=== PATIENT | female | born 1975 | race Caucasian/White ===

== ENCOUNTER 2018-12-21 17:40 | Emergency (ER) | payer BC, OTHER ==
[2018-12-21] MEDS ORDERED: Sodium Chloride 0.9% 10 ML Syringe FLUSH PRN (18:00)
--- NOTE | 2018-12-21 18:24 | EDM.PDOC ---
ED HPI GENERAL MEDICAL PROBLEM - General Stated Complaint: HEART PALPITATIONS CHEST PAINS Time Seen by Provider: 12/21/18 18:20 Source of Information: Reports: Patient History Limitations: Reports: No Limitations - History of Present Illness INITIAL COMMENTS - FREE TEXT/NARRATIVE: 43-year-old female who reports at 1:15 PM today she developed palpitations where she felt that her heart was skipping a beat and also racing at times and she also had some tightness in her chest that seemed to wax and wane's been continually present since 1:15 PM today. She feels that when she has these episodes of skipped beats or feelings that her heart is beating fast or irregularly that she has a worsening of the pain in her chest. The pain in her chest is also made worse with palpation and with deep breath. She rates the pain as a 6/10. It is sharp pain and a tight pain. She's had some nausea but no vomiting. She has had some dizziness. No syncope. She has been able to eat and drink normally. There are no other associated signs or symptoms. There are no other modifying factors. 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 - Related Data Allergies Allergy/AdvReac Type Severity Reaction Status Date / Time No Known Allergies Allergy Verified 12/21/18 18:01 Home Meds: Home Meds Escitalopram [Lexapro] 30 mg PO BEDTIME 12/21/18 [History] Fluticasone Propionate [Flonase] 2 spray NASBOTH BEDTIME 12/21/18 [History] Loratadine [Claritin] 10 mg PO BEDTIME 12/21/18 [History] Omeprazole 20 mg PO BEDTIME 12/21/18 [History] Oxybutynin [Oxybutynin ER] 10 mg PO BEDTIME 12/21/18 [History] Pramipexole [Mirapex] 0.125 mg PO BEDTIME 12/21/18 [History] Past Medical History Gastrointestinal History: Reports: GERD Genitourinary History: Reports: Other (See Below) (Overactive bladder) 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) (Rectovaginal fistula) Neurological History: Reports: Other (See Below) (Restless leg syndrome) Psychiatric History: Reports: Anxiety, Depression - Past Surgical History GI Surgical History: Reports: EGD, Valerie Fundoplication ( laparoscopic) Female Surgical History: Reports: Section, Tubal Ligation, Other ( See Below) (Surgery for rectovaginal fistula) Social & Family History - Tobacco Use Smoking Status *Q: Never Smoker - Alcohol Use Alcohol Use History: Yes Alcohol Use Frequency: Weekly - Living Situation & Occupation Occupation: Employed (Works at [employer]) ED ROS GENERAL - Review of Systems Review Of Systems: See Below Constitutional: Reports: No Symptoms HEENT: Reports: No Symptoms Respiratory: Reports: Shortness of Breath (With this episode of palpitations) Cardiovascular: Reports: Lightheadedness, Palpitations Endocrine: Reports: No Symptoms GI/Abdominal: Reports: Nausea. Denies: Vomiting : Reports: No Symptoms Musculoskeletal: Reports: No Symptoms Skin: Reports: No Symptoms Neurological: Reports: Dizziness Hematologic/Lymphatic: Reports: No Symptoms Immunologic: Reports: No Symptoms ED EXAM, GENERAL - Physical Exam Exam: See Below Exam Limited By: No Limitations General Appearance: Alert, WD/WN, Anxious, Mild Distress, Other (No respiratory distress) Eye Exam: Bilateral Eye: EOMI, Normal Inspection, PERRL Ears: Normal External Exam, Hearing Grossly Normal Nose: Normal Inspection, Normal Mucosa Throat/Mouth: Normal Inspection, Normal Voice, No Airway Compromise Head: Atraumatic, Normocephalic Neck: Normal Inspection, Supple, Non-Tender, Full Range of Motion Respiratory/Chest: No Respiratory Distress, Lungs Clear, Normal Breath Sounds, No Accessory Muscle Use Cardiovascular: Normal Peripheral Pulses, Regular Rate, Rhythm, No JVD, Other ( Tender to palpation on the anterior chest.) Peripheral Pulses: 2+: Radial (L), Radial (R) GI/Abdominal: Normal Bowel Sounds, Soft, Non-Tender, No Mass Back Exam: Normal Inspection Extremities: Normal Inspection, Normal Range of Motion, Non-Tender, Normal Capillary Refill Neurological: Alert, Oriented, CN II-XII Intact, Normal Cognition, No Motor/ Sensory Deficits Psychiatric: Anxious Skin Exam: Warm, Dry, Intact, Normal Color, No Rash EKG INTERPRETATION EKG Date: 12/21/18 Time: 17:46 Rhythm: NSR Rate (Beats/Min): 75 [place]: Normal P-Wave: Present QRS: Normal ST-T: Normal QT: Normal Comparison: NA - No Prior EKG EKG Interpretation Comments: Normal sinus rhythm with a rate of 75. There is a normal axis. There is a normal QTC. There is no current of injury or ischemia. The EKG was normal. Course - Vital Signs Last Recorded V/S: Last Vital Signs Temp 37.4 C 12/21/18 17:40 Pulse 84 12/21/18 17:40 Resp 18 12/21/18 17:40 BP 146/90 H 12/21/18 17:40 Pulse Ox 99 12/21/18 17:40 - Orders/Labs/Meds Orders: Active Orders 24 hr Category Date Time Status EKG Documentation Completion [RC] ASDIRECTED Care 12/21/18 18:02 Active CXR [Chest 2V] [CR] Stat Exams 12/21/18 19:10 Taken THYROXINE (T4) FREE, DIRECT, S Routine Lab 12/21/18 19:55 Ordered Sodium Chloride 0.9% [Saline Flush] Med 12/21/18 18:00 Active 10 ml FLUSH ASDIRECTED PRN Peripheral IV Insertion Adult [OM.PC] Routine Oth 12/21/18 18:00 Ordered EKG 12 Lead [EK] Routine Ther 12/21/18 18:00 Ordered Medication Orders Sodium Chloride (Saline Flush) 10 ml FLUSH ASDIRECTED PRN PRN Reason: Keep Vein Open Labs: Laboratory Tests 12/21/18 12/21/18 12/21/18 Range/Units 17:30 17:56 17:56 WBC 11.7 (4.5-12.0) X10-3/uL RBC 3.93 (3.23-5.20) x10(6)uL Hgb 12.1 (11.5-15.5) g/dL Hct 34.5 (30.0-51.3) % MCV 87.7 (80-96) fL MCH 30.7 (27.7-33.6) pg MCHC 35.0 (32.2-35.4) g/dL RDW 12.2 (11.5-15.5) % Plt Count 524 H (125-369) X10(3)uL MPV 7.3 L (7.4-10.4) fL Neut % (Auto) 56.8 (46-82) % Lymph % (Auto) 35.9 (13-37) % [place] % (Auto) 5.6 (4-12) % Eos % (Auto) 1 (1.0-5.0) % Baso % (Auto) 0 (0-2) % Neut # (Auto) 6.6 (1.6-8.3) # Lymph # (Auto) 4.2 (0.6-5.0) # [place] # (Auto) 0.7 (0.0-1.3) # Eos # (Auto) 0.2 (0.0-0.8) # Baso # (Auto) 0.0 (0.0-0.2) # D-Dimer, Quantitative 0.31 (0.0-0.59) mg/LFEU Sodium (135-145) mmol/L Potassium (3.5-5.3) mmol/L Chloride (100-110) mmol/L Carbon Dioxide (21-32) mmol/L BUN (7-18) mg/dL Creatinine (0.55-1.02) mg/dL Est Cr Clr Drug Dosing Estimated GFR (MDRD) (>60) BUN/Creatinine Ratio (9-20) Glucose (80-116) mg/dL Calcium (8.6-10.2) mg/dL Magnesium (1.8-2.5) mg/dL Total Bilirubin (0.1-1.3) mg/dL AST (5-25) IU/L ALT (12-36) U/L Alkaline Phosphatase (56-112) IU/L Troponin I (<0.017-0.056) ng/mL Total Protein (6.0-8.0) g/dL Albumin (3.5-5.2) g/dL Globulin g/dL Albumin/Globulin Ratio TSH, Ultra Sensitive (0.36-3.74) IU/mL Urine HCG, Qual Negative (NEGATIVE) 12/21/18 12/21/18 Range/Units 17:56 17:56 WBC (4.5-12.0) X10-3/uL RBC (3.23-5.20) x10(6)uL Hgb (11.5-15.5) g/dL Hct (30.0-51.3) % MCV (80-96) fL MCH (27.7-33.6) pg MCHC (32.2-35.4) g/dL RDW (11.5-15.5) % Plt Count (125-369) X10(3)uL MPV (7.4-10.4) fL Neut % (Auto) (46-82) % Lymph % (Auto) (13-37) % [place] % (Auto) (4-12) % Eos % (Auto) (1.0-5.0) % Baso % (Auto) (0-2) % Neut # (Auto) (1.6-8.3) # Lymph # (Auto) (0.6-5.0) # [place] # (Auto) (0.0-1.3) # Eos # (Auto) (0.0-0.8) # Baso # (Auto) (0.0-0.2) # D-Dimer, Quantitative (0.0-0.59) mg/LFEU Sodium 137 (135-145) mmol/L Potassium 4.5 (3.5-5.3) mmol/L Chloride 101 (100-110) mmol/L Carbon Dioxide 29 (21-32) mmol/L BUN 13 (7-18) mg/dL Creatinine 0.7 (0.55-1.02) mg/dL Est Cr Clr Drug Dosing TNP Estimated GFR (MDRD) > 60 (>60) BUN/Creatinine Ratio 18.6 (9-20) Glucose 91 (80-116) mg/dL Calcium 8.7 (8.6-10.2) mg/dL Magnesium 1.9 (1.8-2.5) mg/dL Total Bilirubin 0.2 (0.1-1.3) mg/dL AST 13 (5-25) IU/L ALT 23 (12-36) U/L Alkaline Phosphatase 87 (56-112) IU/L Troponin I < 0.017 L (<0.017-0.056) ng/mL Total Protein 7.6 (6.0-8.0) g/dL Albumin 3.5 (3.5-5.2) g/dL Globulin 4.1 g/dL Albumin/Globulin Ratio 0.9 TSH, Ultra Sensitive 4.55 H (0.36-3.74) IU/mL Urine HCG, Qual (NEGATIVE) Meds: Medications Generic Name Dose Route Start Last Admin Trade Name Junaid PRN Reason Stop Dose Admin Sodium Chloride 10 ml 12/21/18 18:00 Saline Flush FLUSH ASDIRECTED PRN Keep Vein Open - Radiology Interpretation Free Text/Narrative:: Chest x-ray PA and lateral showed no acute abnormality. - Re-Assessments/Exams Free Text/Narrative Re-Assessment/Exam: 12/21/18 19:57: Patient's blood tests including a troponin and a d-dimer were reassuring except for the elevated TSH at 4.55. The EKG was normal. The patient was kept on the monitor for 1-1/2-2 hours with the only dysrhythmia showing was no PVCs. I did see that the patient was reporting symptoms, a PVC or 2 was noted on the telemetry. The patient's chest x-ray also was reassuringly normal. I did send testing for T4 with the results to go to the patient's primary doctor , Dr. Crockett. I have stressed that the patient does need to follow-up with her primary doctor to follow-up on this test and also because she may need Holter or event monitoring. Departure - Departure Time of Disposition: 20:05 Disposition: Home, Self-Care 01 Condition: Good Clinical Impression: Atypical chest pain, Palpitations, Elevated TSH Instructions: Nonspecific Chest Pain, Palpitations Referrals: Jb Crockett MD [Primary Care Provider] - Additional Instructions: Your blood tests were all reassuringly normal except for a mildly elevated thyroid hormone called a TSH. I did send additional testing of your thyroid but this is a send out and will probably not be back until next week. Your EKG was normal. You chest x-ray was normal. You did not have a heart attack. You do not have any evidence of a blood clot in your lungs. There is no evidence of collapse of your lung or a pneumonia in your lungs. You should drink plenty of fluids. You should rest. I have given you off work until 12/23/2018. Avoid caffeine and any other stimulants. Follow-up with your primary doctor next week to follow-up on the thyroid tests that I send out and also for any additional outpatient testing that may be indicated. Back to the emergency department for worsening chest pain, fast heart rate, unrelenting vomiting, trouble breathing or any other concerning sign or symptom. - My Orders Last 24 Hours: My Active Orders 12/21/18 18:00 Sodium Chloride 0.9% [Saline Flush] 10 ml FLUSH ASDIRECTED PRN Peripheral IV Insertion Adult [OM.PC] Routine EKG 12 Lead [EK] Routine 12/21/18 18:02 EKG Documentation Completion [RC] ASDIRECTED 12/21/18 19:10 CXR [Chest 2V] [CR] Stat 12/21/18 19:55 THYROXINE (T4) FREE, DIRECT, S Routine - Assessment/Plan Last 24 Hours: My Active Orders 12/21/18 18:00 Sodium Chloride 0.9% [Saline Flush] 10 ml FLUSH ASDIRECTED PRN Peripheral IV Insertion Adult [OM.PC] Routine EKG 12 Lead [EK] Routine 12/21/18 18:02 EKG Documentation Completion [RC] ASDIRECTED 12/21/18 19:10 CXR [Chest 2V] [CR] Stat 12/21/18 19:55 THYROXINE (T4) FREE, DIRECT, S Routine
--- NOTE | 2018-12-22 10:43 | CR ---
INDICATION: Chest pain. CHEST: PA and lateral views of the chest were obtained 12/21/18 - no comparisons. The heart is normal in size and shape. Mediastinum and for the most part bony thorax was unremarkable with question of some very minimal scoliosis lower middle thoracic spine. An active infiltrate or effusion was not identified. Overlying EKG leads are noted. Evidence of exogenous obesity is noted. IMPRESSION: No acute process. MTDD
== END 2018-12-21 20:15 | disposition home or self-care (01) ==
LOC: FB.ED 17:40
DX: R07.89 Other chest pain (principal); R00.2 Palpitations; R94.6 Abnormal results of thyroid function studies; K21.9 Gastro-esophageal reflux disease without esophagitis; F41.9 Anxiety disorder, unspecified; F32.9 Major depressive disorder, single episode, unspecified; Z79.899 Other long term (current) drug therapy
CPT/HCPCS: 36415; 71046; 80053; 81025; 83735; 84439; 84443; 84484; 85025; 85379; 93005; 99285-25

== ENCOUNTER 2022-02-10 06:17 | Day surgery (SDC) | payer BC ==
[~2022-02-10 06:17] MED LIST: Lactated Ringers 1,000 ML IV SCH; Sodium Chloride 0.9% 10 ML Syringe FLUSH PRN
[2022-02-10] MEDS ORDERED: Midazolam 1 MG/ML 2 ML SDV IV ONE (06:18)
[2022-02-10] MEDS ORDERED: Propofol 200 MG/20 ML SDV IV ONE (06:18)
[2022-02-10] MEDS ORDERED: Lidocaine 2% 100 MG/5 ML Syringe IVPUSH ONE (06:18)
== END 2022-02-10 08:54 | disposition home or self-care (01) ==
LOC: FB.SDS 06:17
PROVIDERS: ATTEND Surgery
DX: K29.50 Unspecified chronic gastritis without bleeding (principal); K31.89 Other diseases of stomach and duodenum; K21.00 Gastro-esophageal reflux disease with esophagitis, without bleeding; K44.9 Diaphragmatic hernia without obstruction or gangrene; K31.7 Polyp of stomach and duodenum; F41.9 Anxiety disorder, unspecified; F32.A Depression, unspecified; G47.00 Insomnia, unspecified; G25.81 Restless legs syndrome; E11.22 Type 2 diabetes mellitus with diabetic chronic kidney disease; Z68.39 Body mass index [BMI] 39.0-39.9, adult; Z79.84 Long term (current) use of oral hypoglycemic drugs
CPT/HCPCS: 43239; 82947; 88305; 88313; J2250; J2704; J7120